=== PATIENT | male | born 1960 | race Caucasian/White ===

== ENCOUNTER → 2024-03-27 14:52 | Outpatient (REF) | payer OTHER, SELFPAY | LOC: RCS 14:52 | PROVIDERS: ATTENDING PHYSICIAN Internal Medicine Cardiovascular Disease; FAMILY PHYSICIAN Family Medicine | DX: I25.2 Old myocardial infarction (principal); R00.0 Tachycardia, unspecified | CPT/HCPCS: 93306 ==